=== PATIENT | female | born 1975 | race Caucasian/White ===

== ENCOUNTER 2019-09-07 11:04 | Emergency (ER) | payer OTHER, SELFPAY ==
[2019-09-07] MEDS ORDERED: Midazolam HCl 2 mg/2 ml Vial ONE (11:14)
[2019-09-07] MEDS ORDERED: Fentanyl 100 MCG/2 ML VIAL ONE ×2 (11:14→12:18)
[2019-09-07] MEDS ORDERED: Ketamine 50 MG/ML (10ML VIAL) ONE (11:46)
[2019-09-07 12:12] LABS: Base Excess-Venous -1.6 mmol/L (-2.0 to 3.0); Bicarbonate (HCO3v) 23.5 mmol/L (22.0-28.0); CO2 Tension (PvCO2) 40.2 mmHg (40.0-50.0); Calcium, Ionized 1.06 mmol/L (See Comments:); Chloride 106 mmol/L (98-107); Hemoglobin - Calc 12.7 g/dL (12.0-16.0); Potassium 3.2 mmol/L (3.5-5.1); Sodium 144 mmol/L (138-145); T. Carbon Dioxide 24.7 mmol/L (22.0-28.0); vO2 Saturation-calc 89.7 % (60.0-85.0)
== END 2019-09-07 12:54 | disposition short-term general hospital (02) ==
LOC: ERS 11:04
DX: U07.1 COVID-19 (principal); J96.90 Respiratory failure, unspecified, unspecified whether with hypoxia or hypercapnia; J12.89 Other viral pneumonia
CPT/HCPCS: 82330; 82435; 82803; 84132; 84295; 85014; 94760; 96374; 96375; J2250; J3010